=== PATIENT | male | born 1960 | race Caucasian/White ===

== ENCOUNTER 2018-10-25 16:29 | Inpatient (IN) ==
[2018-10-25] MEDS ORDERED: IOPAMIDOL 100 ML BOTTLE IV ONE (16:30)
[2018-10-25] MEDS ORDERED: 0.9 % SODIUM CHLORIDE 1,000 ML IV ONE (17:09)
--- NOTE | 2018-10-25 17:54 | Emergency Department Note ---
Abdominal Pain HPI - General Chief Complaint: Abdominal Pain Stated Complaint: abdominal pain Time Seen by Provider: 10/25/18 17:08 Source: patient Mode of arrival: ambulatory Limitations: no limitations - History of Present Illness MD Complaint: abdominal pain Onset (ago): hour(s) (6) Consistency: constant Location: RLQ Severity: moderate Severity scale (1-10): 5 Quality: cramping Radiation: none Migration to: no migration Improves with: nothing Worsens with: nothing Associated symptoms: Reports: nausea, chills. Denies: vomiting, diarrhea, fever, constipation - Related Data Home Medications Medication Instructions Recorded Confirmed gabapentin 300 mg capsule 900 mg PO QDAY cap 07/18/16 10/25/18 levothyroxine 50 mcg tablet 50 mcg PO QAM tab 07/18/16 10/25/18 sertraline 100 mg tablet 100 mg PO QDAY 07/18/16 10/25/18 testosterone cypionate 200 mg/mL 200 mg IM Q2W 07/18/16 10/25/18 intramuscular oil zolpidem 10 mg tablet 10 mg PO QHS tab 07/18/16 10/25/18 Allergies Allergy/AdvReac Type Severity Reaction Status Date / Time bupropion [From Wellbutrin] AdvReac Severe Depression Verified 09/20/16 15:52 adhesive AdvReac Mild Rash Verified 10/25/18 16:35 Review of Systems All systems ED: reviewed and negative except as stated. Abdominal Pain PMH - Past Medical History PMFSH Narrative: All Active Problems (Last Reviewed 08/17/16 @ 15:09 by Kathrine Salinas CMA) Kidney stones (Acute) Cough (Chronic) Shortness of breath on exertion (Chronic) Low testosterone (Chronic) Urinary frequency (Chronic) Muscle spasm (Chronic) Back pain (Chronic) Seasonal allergies (Chronic) Instability of knee joint (Chronic) Sciatica (Chronic) Encounter for therapeutic drug level monitoring (Chronic) Weight gain (Chronic) Hypertriglyceridemia (Chronic) Erectile dysfunction (Chronic) Anxiety (Chronic) Attention deficit hyperactivity disorder (Chronic) Restless leg syndrome (Chronic) Cholelithiasis (Chronic) Tachycardia (Chronic) Elevated blood pressure reading (Chronic) Insulin resistance syndrome (Chronic) Peripheral neuropathy (Chronic) Onychomycosis (Chronic) Depression (Chronic) Leg pain (Chronic) Fatigue (Chronic) Stress (Chronic) Hematuria (Chronic) Sleep apnea (Chronic) Grief reaction (Chronic) Breast mass (Chronic) Bronchitis (Chronic) Kidney stones (Chronic) Abnormal serum creatinine level (Chronic) Abnormal radiologic findings on diagnostic imaging of renal pelvis, ureter, or bladder (Chronic) - Social History Smoking status: Never smoker Physical Exam Limitations: no limitations General appearance: alert, in no apparent distress Head: atraumatic, normocephalic Eye: Present: normal appearance, PERRL, EOMI. Absent: scleral icterus, conjunctival injection ENT: Present: normal oropharynx, mucous membranes moist Neck: Present: trachea midline. Absent: lymphadenopathy, thyromegaly Chest: Present: symmetric chest wall rise Respiratory: Present: normal lung sounds bilaterally. Absent: respiratory distress, wheezes, stridor, accessory muscle use, prolonged expiratory phase Cardiovascular: Present: regular rate, normal rhythm. Absent: systolic murmur, diastolic murmur Abdominal: Present: soft, tenderness. Absent: distention, guarding, rebound, rigidity, organomegaly, mass Abdominal tenderness: Present: RLQ Extremities: Absent: pedal edema, pretibial edema, calf tenderness Back: Absent: CVA tenderness (R), CVA tenderness (L), spinous process tenderness Neurological: Present: alert, oriented X3 Psychiatric: Present: normal affect, normal mood Skin: Present: warm, dry Course Course Narrative: 58-year-old male presenting with a chief complaint of right lower quadrant pain. Patient very focal pain did not give history of significant change in appetite he actually ate at 1130. Patient without significant past medical history aside from some sleep apnea. Physical exam did reveal pain in the right lower quadrant tenderness very focal no rebound anywhere or guarding. Differential diagnosis considered included: Obstruction, perforation, mesenteric ischemia, Crohn's disease, ulcerative colitis, viral gastroenteritis, spontaneous bacterial peritonitis, ketoacidosis, adrenal insufficiency, foodborne illness, IBS, constipation, diverticulosis, diverticulitis, AAA, abdominal compartment syndrome, abdominal migraine, chronic abdominal pain, colonic pseudoobstruction, zoster, hypercalcemia, hypothyroidism, pulmonary causes, nephrolithiasis, pyelonephritis, urinary tract infection, appendicitis. CT scan was obtained edgardo ckly in order to identify intra-abdominal emergent pathology. Patient noted to have appendicitis by CT scan. Immediately notified Dr. Melton who accepted the case for likely surgery tomorrow morning. Patient given Zosyn in the ED will continue that at every 6, patient n.p.o. Vital Signs Temperature 99 F 10/25/18 16:31 Pulse Rate 74 10/25/18 16:31 Respiratory Rate 16 10/25/18 16:31 Blood Pressure 157/82 10/25/18 16:31 Pulse Oximetry (%) 96 10/25/18 16:31 Temperature 99 F 10/25/18 16:31 Pulse Rate 78 10/25/18 18:48 Respiratory Rate 16 10/25/18 16:31 Blood Pressure 152/70 10/25/18 17:32 Pulse Oximetry (%) 93 10/25/18 18:48 Abdominal Pain - Lab Data Result diagrams: 10/25/18 17:18 10/25/18 17:18 Lab Results 10/25/18 10/25/18 10/25/18 Range/Units 17:18 17:18 17:59 WBC 12.2 H (4.5-11.0) K/mcL RBC 5.80 (4.50-5.90) M/mcL Hgb 16.4 (13.5-16.5) g/dL Hct 48.8 (41.0-55.0) % MCV 84.2 (80.0-100.0) fL MCH 28.2 (26.0-34.0) pg MCHC 33.5 (31.0-36.0) g/dL RDW 15.8 H (11.5-14.5) % Plt Count 213 (140-440) K/mcL MPV 7.8 (7.4-10.4) fL Gran % 84.1 H (38.0-78.0) % Lymph % (Auto) 7.5 L (15.5-49.0) % [place] % (Auto) 5.8 (1.0-12.0) % Eos % (Auto) 2.3 (0.0-7.0) % Baso % (Auto) 0.3 (0.0-2.0) % Gran # 10.3 H (1.8-8.0) K/mcL Lymph # (Auto) 0.9 L (1.5-4.8) K/mcL [place] # (Auto) 0.7 (0.1-0.9) K/mcL Eos # (Auto) 0.3 (0.0-0.7) K/mcL Baso # (Auto) 0 (0.0-0.3) K/mcL Sodium 136 (133-145) mmol/L Potassium 4.2 (3.3-5.1) mmol/L Chloride 98 (96-108) mmol/L Carbon Dioxide 25 (22-30) mmol/L Anion Gap 13.0 (8-16) BUN 20 (6-20) mg/dl Creatinine 1.3 H (0.7-1.2) mg/dl GFR Calculation 60 Glucose 111 H (70-105) mg/dL Calcium 10.1 (8.6-10.4) mg/dl Total Bilirubin 0.8 (0.0-1.0) mg/dL AST 36 (0-37) U/l ALT 30 (0-40) U/l Alkaline Phosphatase 42 (39-117) U/L Total Protein 7.1 (5.9-8.4) gm/dL Albumin 4.1 (3.2-5.2) gm/dL Globulin 3.0 (2.2-3.7) gm/dL Albumin/Globulin Ratio 1.4 (1.0-2.3) Lipase 49 (7-60) U/L Urine Color Straw Urine Appearance Clear Urine pH 7.0 (5.0-9.0) Ur Specific Summers 1.033 (1.000-1.035) Urine Protein Neg (NEG) mg/dL Urine Glucose (UA) Negative (NEG) mg/dL Urine Ketones Neg (NEG) mg/dL Urine Occult Blood Neg (<0.03) mg/dL Urine Nitrate Neg (NEG) Urine Bilirubin Neg (NEG) mg/dL Urine Urobilinogen Neg (NEG) mg/dL Ur Leukocyte Esterase Neg (NEG) /uL Ur Culture Indicated? No Critical Care Time Critical Care Time: Yes Total Critical Care Time: 40 Attestation: This critical care time was direct patient care exclusive of other procedures. Disposition Pt seen by [facility]/PA only: No Clinical Impression: Acute appendicitis Qualifiers: Acute appendicitis type: with localized peritonitis Appendicitis gangrene presence: without gangrene Appendicitis perforation presence: without perforat ion Appendicitis abscess presence: unspecified whether abscess present Qualified Code(s): K35.30 - Acute appendicitis with localized peritonitis, without perforation or gangrene Disposition: Xfer As Inpt ([facility]) Instructions: Abdominal Pain (ED) Referrals: Wong Vale ARNP [Primary Care Provider] -
--- NOTE | 2018-10-25 17:58 | Cat Scan Report ---
History: Right lower quadrant pain TECHNIQUE: The patient was imaged following intravenous contrast the diaphragm to the symphysis pubis. Sagittal and coronal reformats were created. Delayed excretory phase images were obtained of the upper abdomen. The radiation exposure was limited using dose reduction technology. The liver is normal in size but there is generalized mild fatty attrition. Spleen is normal. The gallbladder is been removed. The bile ducts are nondilated. The pancreas and adrenals are normal. A 1.8 x 2 cm stone is present in an upper pole infundibulum of the right kidney. There is some scarring of the overlying cortex. No hydronephrosis is present. No stone is present in the left kidney. There is no evidence of pyelonephritis. A 5 mm cortical cyst is present posteriorly in the middle third of the right kidney. The appendix is thickened and inflamed. There is inflammation of the surrounding fat. The appendix measures up to 12 mm in transverse dimension. There is no evidence of an abscess or perforation. There are noninflamed diverticula in the sigmoid colon. Small bowel is nondistended. No adenopathy or ascites are present. The bladder prostate and seminal vesicles appear normal. There is arthritis in the lower thoracic spine. IMPRESSION: Acute appendicitis Large nonobstructing stone in the right kidney Mild fatty infiltration of the liver Sigmoid diverticulosis Dr. Eubanks was called with the results Interpreted and Authenticated by: Ryan Garvey 10/25/18
[2018-10-25 18:09] LABS: Basophils # (Auto) 0 K/mcL (0.0-0.3); Basophils % (Auto) 0.3 % (0.0-2.0); Eosinophils # (Auto) 0.3 K/mcL (0.0-0.7); Eosinophils % (Auto) 2.3 % (0.0-7.0); Granulocytes % (Auto) 84.1 % (38.0-78.0); Hematocrit 48.8 % (41.0-55.0); Hemoglobin 16.4 g/dL (13.5-16.5); Lymphocytes # (Auto) 0.9 K/mcL (1.5-4.8); Lymphocytes % (Auto) 7.5 % (15.5-49.0); Mean Cell Volume 84.2 fL (80.0-100.0); Mean Corpuscular HGB Conc 33.5 g/dL (31.0-36.0); Mean Platelet Volume 7.8 fL (7.4-10.4); Monocytes # (Auto) 0.7 K/mcL (0.1-0.9); Monocytes % (Auto) 5.8 % (1.0-12.0); Platelet Count 213 K/mcL (140-440); Red Cell Distribution Width 15.8 % (11.5-14.5); WBC 12.2 K/mcL (4.5-11.0)
[2018-10-25] MEDS ORDERED: PIPERACILLIN SODIUM/TAZOBACTAM 4.5 GM in DEXTROSE 5% IN WATER 50 ML IV ONE (18:10)
[2018-10-25] MEDS ORDERED: ONDANSETRON 4 MG/2 ML VIAL IV PRN (18:13)
[2018-10-25] MEDS ORDERED: PIPERACILLIN SODIUM/TAZOBACTAM 3.375 GM in DEXTROSE 5% IN WATER 50 ML IV SCH (18:15)
[2018-10-25] MEDS ORDERED: DEXTROSE 5% IN WATER 0 ML IV ONE (18:24)
[2018-10-25 18:28] LABS: ALT/SGPT 30 U/l (0-40); AST/SGOT 36 U/l (0-37); Albumin 4.1 gm/dL (3.2-5.2); Albumin/Globulin Ratio 1.4 (1.0-2.3); Alkaline Phosphatase 42 U/L (39-117); Bilirubin,Total 0.8 mg/dL (0.0-1.0); Blood Urea Nitrogen 20 mg/dl (6-20); Calcium 10.1 mg/dl (8.6-10.4); Carbon Dioxide 25 mmol/L (22-30); Chloride 98 mmol/L (96-108); Glomerular Filtration Rate 60; Glucose 111 mg/dL (70-105)
[2018-10-25 18:43] LABS: Appearance,Urine CLEAR; Bilirubin,Urine NEG (NEG); Color,Urine STRAW; Culture Indicated,Urine NO; Glucose,Urine (UA) NEGATIVE (NEG); Ketones,Urine NEG (NEG); Leukocyte Esterase,Urine NEG /uL (NEG); Nitrate,Urine NEG (NEG); Protein,Urine NEG (NEG); Specific Gravity,Urine 1.033 (1.000-1.035); Urine Blood NEG mg/dL (<0.03); Urobilinogen,Urine NEG (NEG)
[2018-10-25] MEDS: HYDROmorphone 2 MG/ML VIAL IV PRN ×2 (19:27→22:42)
[2018-10-25] MEDS: 0.9 % SODIUM CHLORIDE 10 ML SYRINGE IV SCH (20:59)
[2018-10-26] MEDS: PIPERACILLIN SODIUM/TAZOBACTAM 3.375 GM in DEXTROSE 5% IN WATER 50 ML IV SCH ×5 (00:12→17:57)
[2018-10-26] MEDS: 0.9 % SODIUM CHLORIDE 10 ML SYRINGE IV SCH ×2 (00:13→05:35)
[2018-10-26] MEDS: HYDROmorphone 2 MG/ML VIAL IV PRN ×2 (00:51→13:45)
[2018-10-26 07:51] LABS: POC INR 1.2 (0.9-1.2); POC Pro Time 14.7 sec (11.9-14.5)
--- NOTE | 2018-10-26 07:54 | General Surg History&Physical ---
History of Present Illness Patient information: Note initiated : 10/26/18 at 7:51 am Service Date, if different from initiated Date: [] Patient: Isaiah Coronado a 58 y/o M admitted on 10/25/18 for abdominal pain. Chief Complaint: [] HPI: Mr. Coronado is a 58 year old M admitted with acute appendicitis. The patient had onset of symptoms about 10 AM. He had right lower quadrant cramping pain which became constant. He had associated nausea without vomiting. Because of increasing symptoms he was seen in the emergency room where he was noted to have leukocytosis and CT evidence of an inflamed appendix. He was admitted last evening and is scheduled for appendectomy. Review of Systems All systems PM: reviewed and no additional remarkable complaints except as stated (negative except as noted below) - Neurological numbness ( bilateral peripheral neuropathy), paresthesias, vertigo ( progressive positional vertigo) - Psychiatric anxiety, depression, other ( ADHD) Past History Past medical history: ADHD Anxiety with depression Chronic obstructive sleep apnea with BiPAP treatment Peripheral neuropathy Positional vertigo Past surgical history: Right biceps tendon repair Right rotator cuff repair Right ankle surgery Cholecystectomy Past family history: Mother due to breast cancer Father due to prostate cancer complications Past social history: Employed Never tobacco use Occasional alcohol use Denies drug use Medications and Allergies Home Medications Medication Instructions Recorded Confirmed Type gabapentin 300 mg capsule 900 mg PO QDAY cap 07/18/16 10/25/18 History testosterone cypionate 200 mg/mL 200 mg IM Q2W 07/18/16 10/25/18 History intramuscular oil zolpidem 10 mg tablet 10 mg PO QHS tab 07/18/16 10/25/18 History Allergies Allergy/AdvReac Type Severity Reaction Status Date / Time bupropion [From Wellbutrin] AdvReac Severe Depression Verified 09/20/16 15:52 adhesive AdvReac Mild Rash Verified 10/25/18 16:35 Exam Temp Pulse Resp BP Pulse Ox 97.8 F 65 12 123/66 96 10/26/18 04:45 10/26/18 04:45 10/26/18 04:45 10/26/18 04:45 10/26/18 04:45 - General physical appearance well developed, well nourished, no distress - Eyes PERRL, normal ocular movement - ENT normal pinna, normal nares, normal mucosa, no hearing loss, no congestion - Head Head exam IM: Present: atraumatic, normal inspection, normocephalic - Neck no masses, no bruits, trachea midline, no lymphadenopathy, no venous distension - Cardiovascular Cardiovascular exam IM: Present: normal rate and rhythm, RRR, +S1, +S2. Absent: bradycardia, JVD, tachycardia - Respiratory normal expansion, normal respiratory effort, clear to auscultation - Abdomen Abdomen: Present: soft, tender (mild rlq tendernes), bowel sounds Hernia: Present: none - Genitourinary Present: normal penis with no external lesions - Integumentary Present: no rash, no growths, no abnormal pigmentation - Neurologic Present: normal coordination, normal sensation - Musculoskeletal Present: normal gait, normal posture - Psychiatric Present: oriented to time, oriented to person, oriented to place, speech is normal, memory intact Assessment and Plan (1) Acute appendicitis Patient has been on antibiotics and will have laparoscopic appendectomy later this morning Status: Acute Qualifiers: Acute appendicitis type: with localized peritonitis Appendicitis gangrene presence: without gangrene Appendicitis perforation presence: without perforation Appendicitis abscess presence: unspecified whether abscess present Qualified Code(s): K35.30 - Acute appendicitis with localized peritonitis, without perforation or gangrene (2) Attention deficit hyperactivity disorder Status: Chronic (3) Depression Will continue home medications in the postoperative period Status: Chronic (4) Sleep apnea To use BiPAP tonight if needed Status: Chronic
[2018-10-26] MEDS ORDERED: 0.9 % SODIUM CHLORIDE 1,000 ML IV SCH (08:00)
[2018-10-26] MEDS ORDERED: ONDANSETRON 4 MG/2 ML VIAL IV ONE (08:30)
[2018-10-26] MEDS ORDERED: KETAMINE 100 MG/ML ML IV ONE (08:30)
[2018-10-26] MEDS ORDERED: GLYCOPYRROLATE 0.2 MG/ML VIAL IV ONE (08:30)
[2018-10-26] MEDS ORDERED: MIDAZOLAM 2 MG/2 ML VIAL IV ONE (08:30)
[2018-10-26] MEDS ORDERED: fentaNYL 100 MCG/2 ML VIAL IV ONE (08:30)
[2018-10-26] MEDS ORDERED: ROCURONIUM 10 MG/ML ML IV ONE (08:30)
[2018-10-26] MEDS ORDERED: LIDOCAINE HCL/PF 100 MG/5 ML SYRINGE IV ONE (08:30)
[2018-10-26] MEDS ORDERED: PROPOFOL 200 MG/20 ML VIAL IV ONE (08:30)
[2018-10-26] MEDS ORDERED: SUGAMMADEX SODIUM 200 MG/2 ML VIAL IV ONE (08:30)
[2018-10-26] MEDS ORDERED: TRANEXAMIC ACID 1,000 MG/10 ML VIAL IV ONE ×2 (08:30→10:45)
[2018-10-26] MEDS ORDERED: SCOPOLAMINE 1 PATCH PATCH TOPICAL PRN (08:41)
[2018-10-26] MEDS ORDERED: IPRATROPIUM/ALBUTEROL 3 ML AMPUL.NEB NEB PRN ×2 (08:41→10:45)
[2018-10-26] MEDS ORDERED: SCOPOLAMINE 1 PATCH PATCH TOPICAL ONE (09:36)
[2018-10-26] MEDS ORDERED: KETOROLAC 30 MG/ML VIAL IV PRN (10:45)
[2018-10-26] MEDS ORDERED: ACETAMINOPHEN 1,000 MG/100 ML BOTTLE IV ONE (10:45)
[2018-10-26] MEDS ORDERED: HYDROmorphone 2 MG/ML VIAL IV PRN ×2 (10:45→12:30)
[2018-10-26] MEDS ORDERED: MEPERIDINE 25 MG/ML SYRINGE IV PRN (10:45)
[2018-10-26] MEDS ORDERED: LABETALOL 5 MG/ML ML IV PRN (10:45)
[2018-10-26] MEDS ORDERED: ONDANSETRON 4 MG/2 ML VIAL IV PRN ×2 (10:45→12:30)
[2018-10-26] MEDS ORDERED: METOPROLOL TARTRATE 5 MG/5 ML VIAL IV PRN (10:45)
[2018-10-26] MEDS ORDERED: fentaNYL 100 MCG/2 ML VIAL IV PRN (10:45)
[2018-10-26] MEDS ORDERED: LACTATED RINGERS 1,000 ML IV SCH (10:45)
--- NOTE | 2018-10-26 10:58 | Brief Operative Note ---
Date of procedure: 10/26/18 Pre-op diagnosis: ACUTE APPENDICITIS Post-op diagnosis: other (ACUTE APPENDICITIS) Procedure: LAPAROSCOPIC APPENDECTOMY Grafts/Implants: No (JENNIFER X 1) Anesthesia: GETA Findings: ACUTE SUPPURATIVE APPENDICITIS Complications: none Surgeon: Eliza Melton Estimated blood loss (cc): 12 Specimens Removed/Pathology: other (APPENDIX) Condition: stable Disposition: PACU
[2018-10-26] MEDS: 0.9 % SODIUM CHLORIDE 1,000 ML IV SCH ×2 (12:50→20:19)
[2018-10-26] MEDS ORDERED: PROMETHAZINE 25 MG/ML VIAL IV PRN (13:22)
[2018-10-26] MEDS ORDERED: ZOLPIDEM 5 MG TABLET PO PRN (13:22)
[2018-10-26 13:53] LABS: Basophils # (Auto) 0 K/mcL (0.0-0.3); Basophils % (Auto) 0.1 % (0.0-2.0); Eosinophils # (Auto) 0.1 K/mcL (0.0-0.7); Granulocytes % (Auto) 87.9 % (38.0-78.0); Hematocrit 45.2 % (41.0-55.0); Hemoglobin 15.2 g/dL (13.5-16.5); Lymphocytes # (Auto) 0.5 K/mcL (1.5-4.8); Mean Cell Volume 84.8 fL (80.0-100.0); Mean Corpuscular HGB Conc 33.6 g/dL (31.0-36.0); Mean Platelet Volume 7.2 fL (7.4-10.4); Monocytes # (Auto) 0.4 K/mcL (0.1-0.9); Platelet Count 199 K/mcL (140-440); RBC 5.33 M/mcL (4.50-5.90); Red Cell Distribution Width 15.7 % (11.5-14.5); WBC 8.5 K/mcL (4.5-11.0)
[2018-10-26 14:30] LABS: ALT/SGPT 23 U/l (0-40); AST/SGOT 26 U/l (0-37); Albumin 3.5 gm/dL (3.2-5.2); Albumin/Globulin Ratio 1.2 (1.0-2.3); Alkaline Phosphatase 33 U/L (39-117); Bilirubin,Direct 0.3 mg/dL (0.0-0.3); Bilirubin,Total 1.1 mg/dL (0.0-1.0); Blood Urea Nitrogen 18 mg/dl (6-20); Calcium 8.5 mg/dl (8.6-10.4); Carbon Dioxide 22 mmol/L (22-30); Chloride 100 mmol/L (96-108); Globulin 2.9 gm/dL (2.2-3.7); Glomerular Filtration Rate 60; Glucose 148 mg/dL (70-105); Lactate Dehydrogenase 204 U/L (94-250); Phosphorous 3.2 mg/dL (2.7-4.5); Triglycerides 98 mg/dl (<150); Uric Acid 5.9 mg/dL (2.5-8.0)
[2018-10-26] MEDS: GABAPENTIN 400 MG CAPSULE PO SCH (20:19)
[2018-10-26] MEDS ORDERED: ZOLPIDEM 5 MG TABLET PO SCH (21:00)
[2018-10-27] MEDS: PIPERACILLIN SODIUM/TAZOBACTAM 3.375 GM in DEXTROSE 5% IN WATER 50 ML IV SCH ×3 (00:01→12:28)
[2018-10-27] MEDS: 0.9 % SODIUM CHLORIDE 1,000 ML IV SCH ×2 (05:25→13:00)
[2018-10-27 05:48] LABS: Basophils # (Auto) 0 K/mcL (0.0-0.3); Basophils % (Auto) 0.4 % (0.0-2.0); Eosinophils # (Auto) 0.2 K/mcL (0.0-0.7); Eosinophils % (Auto) 2.1 % (0.0-7.0); Granulocytes % (Auto) 76.2 % (38.0-78.0); Hematocrit 40.1 % (41.0-55.0); Hemoglobin 13.6 g/dL (13.5-16.5); Lymphocytes % (Auto) 13.1 % (15.5-49.0); Mean Cell Volume 85.3 fL (80.0-100.0); Mean Corpuscular HGB Conc 33.8 g/dL (31.0-36.0); Mean Platelet Volume 7.6 fL (7.4-10.4); Monocytes # (Auto) 0.6 K/mcL (0.1-0.9); Monocytes % (Auto) 8.2 % (1.0-12.0); Platelet Count 196 K/mcL (140-440); Red Cell Distribution Width 16.3 % (11.5-14.5); WBC 7.3 K/mcL (4.5-11.0)
[2018-10-27 06:37] LABS: ALT/SGPT 18 U/l (0-40); AST/SGOT 18 U/l (0-37); Albumin 3.1 gm/dL (3.2-5.2); Albumin/Globulin Ratio 1.2 (1.0-2.3); Alkaline Phosphatase 27 U/L (39-117); Bilirubin,Direct < 0.2 mg/dL (0.0-0.3); Bilirubin,Total 0.8 mg/dL (0.0-1.0); Blood Urea Nitrogen 18 mg/dl (6-20); Carbon Dioxide 25 mmol/L (22-30); Chloride 103 mmol/L (96-108); Globulin 2.6 gm/dL (2.2-3.7); Glomerular Filtration Rate 50; Glucose 97 mg/dL (70-105); Lactate Dehydrogenase 150 U/L (94-250); Phosphorous 2.7 mg/dL (2.7-4.5); Triglycerides 89 mg/dl (<150); Uric Acid 4.9 mg/dL (2.5-8.0)
[2018-10-27] MEDS: HYDROmorphone 2 MG/ML VIAL IV PRN (07:56)
[2018-10-27] MEDS: GABAPENTIN 400 MG CAPSULE PO SCH (12:29)
--- NOTE | 2018-10-27 14:01 | Discharge Summary ---
Providers - Providers Patient information: Note initiated : 10/27/18 at 1:58 pm Service Date, if different from initiated Date: [] Patient: Isaiah Coronado 58 y/o M admitted on 10/25/18 for abdominal pain. Chief Complaint: [] Date of admission: 10/25/18 Discharge date: 10/27/18 Attending physician: Eliza Melton Hospitalization Hospital Course: 58-year-old male admitted on 25 October with signs and symptoms of acute appendicitis. This was confirmed by CT of the abdomen and pelvis. Patient underwent laparoscopic appendectomy on September. Because of constant oozing from the mesoAppendix the area was drained with a Solomon drain. The drainage is serosanguineous and small in volume. His hemoglobin and white blood count are normal. Patient has tolerated diet and is stable for discharge. Discharge diagnosis: acute appendicitis Secondary discharge diagnosis: Chronic obstructive sleep apnea with BiPAP therapy Anxiety with depression Peripheral neuropathy Reason for admission: abdominal pain with nausea ,leukocytosis Procedures: Laparoscopic appendectomy 26 October Pertinent studies/significant findings: CT of abdomen and pelvis with contrast Complications: None Exam Temp Pulse Resp BP Pulse Ox 97.7 F 65 17 127/76 97 10/27/18 12:00 10/27/18 12:00 10/27/18 12:00 10/27/18 12:00 10/27/18 12:00 - General physical appearance well developed, well nourished, no distress - Eyes PERRL, normal ocular movement - ENT normal pinna, normal nares, normal mucosa, no hearing loss, no congestion - Head Head exam IM: Present: atraumatic, normocephalic - Neck no masses, no bruits, trachea midline, no lymphadenopathy, no venous distension - Cardiovascular Cardiovascular exam IM: Present: normal rate and rhythm - Respiratory normal expansion, normal respiratory effort, clear to percussion, clear to auscultation - Abdomen Abdomen: Present: soft, tender (normal except for mild tenderness around port sites), bowel sounds Hernia: Present: none - Genitourinary Present: normal penis with no external lesions - Integumentary Present: no rash, no growths, no abnormal pigmentation - Neurologic Present: normal coordination, normal sensation - Musculoskeletal Present: normal gait, normal posture - Psychiatric Present: oriented to time, oriented to person, oriented to place, speech is normal, memory intact Discharge Plan - Patient/Caregiver Discharge Instructions Activity: increase activity as tolerated Diet: Regular Diet Additional Instructions: Contact the office on Monday for an appointment on 05 November for drain removal Make an appointment for 12 November for staple removal Leave Tegaderm dressings in place until you return to the office Prescriptions: oxyCODONE HCL/ACETAMINOPHEN [Endocet 5-325 Tablet] 1 tab PO Q4H PRN #30 tab PRN Reason: Pain - Follow up Plan Follow up with: Wong Vale ARNP [Primary Care Provider] - Disposition: Home, Self-Care Prognosis: Good Rehab Potential: Good I certify that the patient requires SNF services.: No Overall status at discharge: patient is progressing back to baseline Pending Studies Diet Full Liquid Diet Start MonOct 26 1106 Gabapentin (Neurontin) 400 mg PO BID@1200,2100 MAXIMILIANO Last Admin: 10/27/18 12:29 Dose: 400 mg Documented by: Admin: 10/26/18 20:19 Dose: 400 mg Documented by: KATE Hydromorphone HCl (Dilaudid) 1 mg IV Q2HP PRN PRN Reason: PAIN LEVEL > 6 Last Admin: 10/27/18 07:56 Dose: 1 mg Documented by: Admin: 10/26/18 13:45 Dose: 1 mg Documented by: JAYY Sodium Chloride (Sodium Chloride 0.9%) 1,000 mls @ 125 mls/hr IV .Q8H [facility] Last Admin: 10/27/18 13:00 Dose: Not Given Documented by: Admin: 10/27/18 05:25 Dose: 125 mls/hr Documented by: Infusion: 10/27/18 04:19 Dose: 125 mls/hr Documented by: Admin: 10/26/18 20:19 Dose: 125 mls/hr Documented by: Infusion: 10/26/18 20:19 Dose: 125 mls/hr Documented by: Admin: 10/26/18 12:50 Dose: 125 mls/hr Documented by: JAYY Piperacillin Sod/Tazobactam (Sod 3.375 gm/ Dextrose) 50 mls @ 100 mls/hr IV Q6H MAXIMILIANO; Protocol Last Admin: 10/27/18 12:28 Dose: 100 mls/hr Documented by: Infusion: 10/27/18 05:55 Dose: 100 mls/hr Documented by: Admin: 10/27/18 05:25 Dose: 100 mls/hr Documented by: Infusion: 10/27/18 00:35 Dose: 0 mls/hr Documented by: Admin: 10/27/18 00:01 Dose: 100 mls/hr Documented by: Infusion: 10/26/18 18:30 Dose: 0 mls/hr Documented by: Admin: 10/26/18 17:57 Dose: 100 mls/hr Documented by: Infusion: 10/26/18 13:27 Dose: 0 mls/hr Documented by: Admin: 10/26/18 12:53 Dose: 100 mls/hr Documented by: JAYY Ondansetron HCl (Zofran) 4 mg IV Q6HP PRN PRN Reason: Nausea And Vomiting Last Admin: 10/26/18 13:15 Dose: 4 mg Documented by: JAYY Promethazine HCl (Phenergan) 12.5 mg IV Q4HP PRN PRN Reason: Nausea And Vomiting Last Admin: 10/26/18 13:44 Dose: 12.5 mg Documented by: JAYY Zolpidem Tartrate (Ambien) 10 mg PO HS MAXIMILIANO Last Admin: 10/26/18 20:19 Dose: 10 mg Documented by: KATE Shift Summary 10/27/18 04:48 Shift Summary by Jayda Patricia Patient alert and oriented. Pain 2-3/10. Refused to take pain medication last night. Patient slept well uses CPAP nocte. On Full liquid diet. Denies any nausea or vomiting. Active bowel tones, no BM this shift. Patient reported passing flatus but a little bit. Two lap sites on abdomen- dante and tegaderm CDI. JENNIFER x1 on lower abdomen, drained 75mls of sanguinous to serosanguinous output. On IVF NS@125 infusing well on left hand. On IV ABO Zosyn. SBP high 90's to low 100's mmHg, MN high 50's to 70's bpm. Initialized on 10/27/18 04:48 - END OF NOTE
--- NOTE | 2018-10-30 13:48 | Surgical Pathology Report ---
HISTOLOGY SPECIMEN MICROSCOPIC DIAGNOSIS APPENDIX, APPENDECTOMY: -- ACUTE APPENDICITIS WITH SEROSITIS. -- FIBROUS ABLATION OF THE APPENDICEAL TIP. (DMT:narciso) PROCEDURAL IMPRESSION Appendicitis. GROSS DESCRIPTION Received in formalin labeled appendix, is a taylor-mayer appendix that measures 6.8 cm in length by up to 1.3 cm in diameter. The margin is stapled and inked black. There is taylor-mayer possible exudate on the serosal surface. Sectioning reveals pink-mayer to red-mayer tissue. Test Center Administrator sections submitted - one cassette. (SCB:narciso) Electronically Signed by: Colton Flood M.D.
--- NOTE | 2018-10-31 16:12 | Operative Note ---
DATE OF OPERATION: 10/26/2018 PREOPERATIVE DIAGNOSIS: Acute appendicitis. POSTOPERATIVE DIAGNOSIS: Acute appendicitis. PROCEDURE: Laparoscopic appendectomy. SURGEON: Eliza Melton M.D. FINDINGS: Acute suppurative appendicitis. DESCRIPTION OF PROCEDURE: Under general anesthesia, the patient was prepped and draped in a sterile field. Timeout procedure was carried out as per protocol. A supraumbilical midline incision was made and Veress needle was inserted. Abdomen was insufflated with 3 liters of CO2. A 12 mm port was placed. Laparoscope was placed. Under videoscopic guidance, a 5 mm port was placed in the suprapubic midline and a 12 mm port was placed in the left lower quadrant. The patient was placed in deep Trendelenburg position and rotated to the left. The appendix was found lateral to the cecum. It was adherent to the lateral pelvic wall. These adhesions were taken down with blunt dissection and Endo Elaine. The mesoappendix was grasped and the base of the appendix was freed. Dissection in the mesoappendix at the base was carried out. The mesoappendix was dissected and transected using Endo ROMY stapler. The base of the appendix was transected using the Endo ROMY stapler. There was some bleeding from the mesoappendix so this was reinforced with multiple Hemoclips until the bleeding was controlled. Irrigation was carried out until the fluid returned clear. The appendix was placed in an Endopouch and retrieved. There was slight oozing still from the mesoappendix part of which was controlled by cautery, but it was felt that it will be better to leave a JENNIFER drain in place. This was placed in the bed of the operative field and brought out through the midline suprapubic port site. Irrigation was carried out until clear. The ports were removed and the fascia at the umbilicus was closed with interrupted 0 Vicryl. The 12 mm port and skin was closed with dante. Tegaderm dressings were placed. The patient tolerated the procedure well. He was awakened from anesthesia uneventfully, transferred to a bed, and taken to the postanesthetic care unit in stable, satisfactory. LCS:dread Job ID: [id number] Doc ID: [id number] Eliza Melton M.D.
== END 2018-10-27 15:30 | disposition home or self-care (01) | DRG 342 ==
LOC: ED 16:29 → MEDSUR 19:52
PROVIDERS: ADMIT Family Medicine Adult Medicine; ATTEND Family Medicine Adult Medicine